=== PATIENT | male | born 1945 ===

== ENCOUNTER → 2020-06-07 | Outpatient (CLI) | payer OTHER | LOC: LAB SHORT 10:52 | DX: D48.5 Neoplasm of uncertain behavior of skin (principal); D22.5 Melanocytic nevi of trunk | CPT/HCPCS: 88305 ==

== ENCOUNTER → 2020-06-14 | Outpatient (CLI) | payer MEDICARE, BC | LOC: LAB SHORT 07:57 → LAB 07:57 | DX: D22.5 Melanocytic nevi of trunk (principal) | CPT/HCPCS: 88305 ==